=== PATIENT | male | born 1960 | race Caucasian/White ===

== ENCOUNTER → 2021-04-13 | Outpatient (CLI) | payer BC ==
[~2021-04-13] MED LIST: ACET650T8 PO; ASCO500T17 PO; ASPI-586 PO; DULO30CA3 PO; FENO134C PO; LOSA1TAB23 PO; TAMS0.4C2 PO
== END ==
LOC: LAB 11:27
PROVIDERS: ATTEND Emergency Medicine
DX: Z20.822 Contact with and (suspected) exposure to COVID-19 (principal)
CPT/HCPCS: 87636

== ENCOUNTER → 2021-05-07 | Outpatient (CLI) | payer BC ==
--- NOTE | 2021-05-07 08:56 | Diagnostic Imaging Report ---
EXAMINATION: US Abdomen limited. TECHNIQUE: Multiple real-time grayscale images were obtained over the right upper quadrant in various projections. HISTORY: ELEVATED LIVER ENZYMES COMPARISON: None available. FINDINGS: Pancreas: The pancreas is nonvisualized secondary to overlying bowel gas. Liver: Increased echogenicity of the liver and normal contour which can be seen with hepatic steatosis. No focal lesions are seen. The portal vein is patent with hepatopetal flow. Gallbladder and biliary tree: Gallbladder is normal without wall thickening, pericholecystic fluid, or sonographic Viveros sign. There is no biliary ductal dilation. The common duct is nonvisualized. Right kidney: The right kidney is normal without hydronephrosis. Aorta and IVC: The visualized aorta and inferior vena cava are normal. Fluid: No ascites is seen. IMPRESSION: 1. Findings of hepatic steatosis. Otherwise unremarkable abdominal ultrasound. Dictated by: Dictated on workstation # [id number]
== END ==
LOC: RAD 07:00
PROVIDERS: ATTEND Family Medicine
DX: K76.0 Fatty (change of) liver, not elsewhere classified (principal); R94.5 Abnormal results of liver function studies
CPT/HCPCS: 76705

== ENCOUNTER 2022-04-01 05:38 | Outpatient (CLI) | payer BC ==
[~2022-04-01] VITALS: Ht 182.9 cm; Wt 131.5 kg
[~2022-04-01 05:38] MED LIST changes: -FENO134C PO; +FENO134C21 PO
[2022-04-02] MEDS ORDERED: BACL10TA PO (12:38)
[2022-04-02] MEDS ORDERED: LOSA100T57 PO (12:38)
[2022-04-02] MEDS ORDERED: HYDR25TA4 PO (12:38)
== END 2022-04-02 12:41 | disposition home or self-care (01) ==
LOC: PREOP 05:38
PROVIDERS: ATTEND Surgery
DX: Z01.818 Encounter for other preprocedural examination (principal)

== ENCOUNTER 2022-05-04 07:01 | Day surgery (SDC) | payer BC ==
[~2022-05-04] VITALS: Ht 183 cm; Wt 131.5 kg
[~2022-05-04 07:01] MED LIST changes: +BACL10TA PO; +HYDR25TA4 PO; +LOSA100T57 PO
[2022-05-04] MEDS ORDERED: LACTATED RINGERS 1,000 ML IV STA (07:08)
[2022-05-04] MEDS ORDERED: LACTATED RINGERS 1,000 ML IV ONE (07:31)
[2022-05-04] MEDS ORDERED: PROPOFOL INJECTION 50 ML IV ONE (07:48)
[2022-05-04] MEDS ORDERED: proPOfol 200 MG/20 ML (DIPRIVAN) VIAL IV ONE (08:41)
[2022-05-04 09:11] VITALS: BP 103/56
[2022-05-04 09:21] VITALS: BP 103/56
--- NOTE | 2022-05-04 09:35 | Anesthesia-General Post-Op ---
MAC Patient Condition Mental Status/LOC: Same as Preop Cardiovascular: Satisfactory Nausea/Vomiting: Absent Respiratory: Satisfactory Pain: Controlled Complications: Absent Post Op Complications Complications None Follow Up Care/Instructions Patient Instructions None needed. Anesthesiology Discharge Order Discharge Order Patient is doing well, no complaints, stable vital signs, no apparent adverse anesthesia problems. No complications reported per nursing. AGUS WILD CRNA May 04, 2022 09:35
[2022-05-04 09:52] VITALS: BP 103/56
--- NOTE | 2022-05-04 12:57 | OPERATIVE REPORT ---
DATE OF SERVICE: 05/04/2022 PREOPERATIVE DIAGNOSIS: Family history of colon cancer, screening colonoscopy. POSTOPERATIVE DIAGNOSIS: Normal colon. PROCEDURE: Colonoscopy. SURGEON: Joel Cortés DO ANESTHESIA: Per ENGINEERING INTERN. ESTIMATED BLOOD LOSS: None. COMPLICATIONS: None. INDICATIONS: The patient is a 62-year-old male needing screening colonoscopy. He understands risks and benefits of procedure and wished to proceed. Consent was signed in the chart. DESCRIPTION OF PROCEDURE: The patient was taken to the endoscopy suite, placed in left lateral recumbent position. Timeout was performed. Digital rectal exam was performed. No palpable polyps, masses or ulcerations. Scope was inserted in the rectum and advanced all the way to cecum with minimal difficulty. Prep was adequate. Scope was slowly retracted back. No polyps, masses or ulcerations in the cecum, ascending, transverse, descending and sigmoid colon. Once in the rectum, scope was retroflexed noting no other pathology. Scope was returned to its normal position, slowly withdrawn until completely removed. The patient tolerated procedure well without complications and taken to recovery room in stable condition. RECOMMENDATIONS: The patient will need repeat colonoscopy in five years. Any issues before that be seen at that time. Job ID: [id number] DocumentID: [id number] Dictated Date: 05/04/2022 09:03:28 Chip Mucker Date: 05/04/2022 12:56:49 Dictated By: JOEL CORTÉS DO
== END 2022-05-04 09:53 | disposition home or self-care (01) ==
LOC: ENDO 07:01
PROVIDERS: ATTEND Surgery
DX: Z12.11 Encounter for screening for malignant neoplasm of colon (principal); E66.9 Obesity, unspecified; Z68.41 Body mass index [BMI] 40.0-44.9, adult; Z80.0 Family history of malignant neoplasm of digestive organs